=== PATIENT | male | born 1975 | race Caucasian/White ===

== ENCOUNTER 2016-06-19 19:42 | Emergency (ER) | payer MEDICAID ==
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
== END 2016-06-19 21:05 | disposition home or self-care (01) ==
LOC: ER 19:42
DX: F41.0 Panic disorder [episodic paroxysmal anxiety] (principal); F43.12 Post-traumatic stress disorder, chronic; F43.11 Post-traumatic stress disorder, acute; F17.210 Nicotine dependence, cigarettes, uncomplicated; Z79.899 Other long term (current) drug therapy

== ENCOUNTER 2016-06-27 10:13 | Emergency (ER) | payer MEDICAID ==
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
== END 2016-06-27 11:35 | disposition home or self-care (01) ==
LOC: ER 10:13
DX: F41.9 Anxiety disorder, unspecified (principal); F17.210 Nicotine dependence, cigarettes, uncomplicated; Z79.899 Other long term (current) drug therapy

== ENCOUNTER 2016-07-06 09:09 | Emergency (ER) | payer MEDICAID | END 2016-07-06 09:19 | disposition left against medical advice (07) | LOC: ER 09:09 | DX: Z53.21 Procedure and treatment not carried out due to patient leaving prior to being seen by health care provider (principal) ==

== ENCOUNTER 2016-07-06 14:46 | Emergency (ER) | payer MEDICAID ==
--- NOTE | 2016-07-08 10:16 | NUR ---
Pt triggered as a high ED user. Attempted to contact pt - unable due contact pt due to invalid phone number.
--- NOTE | 2016-07-11 21:52 | ER ---
ADMIT: 07/06/2016 RM/LOC: ER [facility] MR#: [id number] [address] [address] JAYSON BOWSER [address] [place] [address] Emergency Room Report SEX: M AGE: 40 : 1975 DATE: 07/06/2016 ADDENDUM: CHIEF COMPLAINT: Anxiety. HISTORY OF PRESENT ILLNESS: This is a 40-year-old, who has tried multiple SSRIs for anxiety. He is not able to tolerate the medications after about 7 days. He stopped taking the medications. Here in the ER, he actually did not request any medications. I just told him to follow up with Dr. Rabia Calderón tomorrow at GI clinic as scheduled. I did tell him to request to have his thyroid checked to make sure this was an issue. CLINICAL IMPRESSION: Anxiety. ROD Reid / Nahid Krueger MD / jacoby JOB #: [id number] CC: Nahid Krueger MD, Attending Physician UNKNOWN, Family Physician
== END 2016-07-06 16:30 | disposition home or self-care (01) ==
LOC: ER 14:46
DX: F41.9 Anxiety disorder, unspecified (principal)

== ENCOUNTER 2016-07-10 12:32 | Emergency (ER) | payer MEDICAID | END 2016-07-10 12:40 | disposition left against medical advice (07) | LOC: ER 12:32 | DX: Z53.21 Procedure and treatment not carried out due to patient leaving prior to being seen by health care provider (principal) ==

== ENCOUNTER 2016-07-11 18:31 | Emergency (ER) | payer MEDICAID ==
--- NOTE | 2016-07-22 19:38 | ER ---
ADMIT: 07/11/2016 RM/LOC: ER [facility] MR#: [id number] [address] [address] JAYSON BOWSER [address] [place] [address] Emergency Room Report SEX: M AGE: 40 : 1975 DATE: 07/11/2016 CHIEF COMPLAINT: Anxiety and left axillary pain. HISTORY OF PRESENT ILLNESS: This is a pleasant 40-year-old male, who presents today secondary to complaints of left axillary pain and anxiety. The patient states he has a storied history of anxiety and panic attacks, bringing him to the ER several times throughout the recent months. The patient states he gets worked up to the point that he starts thinking about bad things and that he could possibly . He has seen Dr. Calderón, his primary care provider, who started him on some medications initially and secondarily referred him to Dr. Hwang for further management of his psychiatric illnesses including PTSD and generalized anxiety disorder. The patient states he is very frustrated with Dr. Hwang, does not feel like she listens, feels like she is just "pushing pills." States that he has tried several medications and failed stating they make his anxiety worse. He states he feels better now being in the ER and after he took Xanax prior to arrival. Denies any nausea, vomiting, shortness of breath, palpitations, chest pain, dizziness or weakness. COURSE IN THE EMERGENCY ROOM: Patient was seen and examined. He is afebrile and nontoxic. Physical exam was unremarkable. We do have a lengthy conversation about his anxiety and he is concerned that his psychiatrist, Dr. Hwang is not addressing his concerns and is "pushing pills." He relates to me that he gets very anxious. He starts worrying about the things to the point that he feels that he could . It is affecting his lifestyle. He feels like he is not able to take care of his kids or devote time that needs to his family. He states he has considered checking himself into the "[facility]." He is very frustrated with the medications he has been placed on previously not providing him any relief; however, he does feel like the Xanax when he does take it does relieve his symptoms. He states he is using this ADMIT: 07/11/2016 RM/LOC: ER [facility] MR#: [id number] [address] [address] JA[address]ON BOWSER [address] [place] [address] Emergency Room Report SEX: M AGE: 40 : 1975 very sparingly at this point as he noted those have addictive potential. IMPRESSION: Anxiety. DISPOSITION: I discussed with the patient that he should perhaps seek a second opinion and with psychiatrist of his choosing, who might better manage his symptoms and provide alternative strategies for dealing with anxiety. I encouraged him to return home and rest. Continue his home medications as previously prescribed. He should return with any worsening signs or symptoms. Otherwise follow up with his primary care provider as needed. Questions were sought and answered to the best of the patient's satisfaction. He was discharged in stable condition. ROD Starkey / Nahid Krueger MD / julissal JOB #: [id number] CC: Gael Cohen MD, Attending Physician Rabia Calderón, Family Physician
== END 2016-07-11 19:52 | disposition home or self-care (01) ==
LOC: ER 18:31
DX: F41.9 Anxiety disorder, unspecified (principal); F17.210 Nicotine dependence, cigarettes, uncomplicated

== ENCOUNTER 2016-07-15 00:18 | Emergency (ER) | payer MEDICAID ==
--- NOTE | 2016-07-15 05:56 | ER ---
ADMIT: 07/15/2016 RM/LOC: [facility] MR#: [id number] [address] [place], [place] [address] JAYSON BOWSER [address] [place] [address] Emergency Room Report SEX: M AGE: 40 : 1975 DATE: 07/15/2016 TIME: 0018 hours. Please refer to my T-sheet for complete H and P. HISTORY OF PRESENT ILLNESS: Briefly, the patient is a 40-year-old who is going on his third day off the Xanax. He has been seen [address] Calderón, today by [facility], and he came here because he cannot sleep. He feels kind of anxious. He was on Xanax but he was on it heavy only for a month or two and a small dose. He did not take it every day, but he is having insomnia now and that is what he wants help with. Nonsuicidal. No other complaints. PHYSICAL EXAMINATION: VITAL SIGNS: Stable. HEENT: Grossly normal. LUNGS: Clear. NEUROLOGIC: Alert and oriented. Nonfocal. EMERGENCY DEPARTMENT COURSE: I had a long discussion with him. He was ready for discharge. ASSESSMENT: 1. Coming off Xanax. 2. Insomnia. PLAN: Use Benadryl. I wrote him a script for Ambien just 10 of them. Use at bedtime p.r.n. Follow up with Dr. Calderón. Israel Ruiz MD/ julissal JOB #: [id number] CC: Israel Ruiz MD, Attending Physician Rabia Calderón, Family Physician
== END 2016-07-15 00:55 | disposition home or self-care (01) ==
LOC: ER 00:18
DX: G47.00 Insomnia, unspecified (principal); F41.9 Anxiety disorder, unspecified; F17.210 Nicotine dependence, cigarettes, uncomplicated; Z79.899 Other long term (current) drug therapy

== ENCOUNTER 2016-07-15 16:43 | Emergency (ER) | payer MEDICAID ==
--- NOTE | 2016-07-27 16:04 | ER ---
ADMIT: 07/15/2016 RM/LOC: ER [facility] MR#: [id number] [address] [address] [address]ON BOWSER [address] [place] [address] Emergency Room Report SEX: M AGE: 40 : 1975 DATE: 07/15/2016 ADDENDUM: A 40-year-old, white male, trying to get off benzodiazepine. He has seen his doctor, they put him on Depakote to see if he can get through this. He has continued doing his normal Depakote, and follow up with his doctor. We had nothing more that we could offer him at this time. Sky Hester MD/ jacoby JOB #: [id number] CC: Sky Hester MD, Attending Physician Mikaela Hwang MD, Family Physician
== END 2016-07-15 18:00 | disposition home or self-care (01) ==
LOC: ER 16:43
DX: F41.1 Generalized anxiety disorder (principal); F19.939 Other psychoactive substance use, unspecified with withdrawal, unspecified; F17.210 Nicotine dependence, cigarettes, uncomplicated

== ENCOUNTER 2016-07-23 12:02 | Emergency (ER) | payer MEDICAID ==
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
== END 2016-07-23 14:00 | disposition home or self-care (01) ==
LOC: ER 12:02
DX: F41.8 Other specified anxiety disorders (principal); Z79.899 Other long term (current) drug therapy

== ENCOUNTER 2016-07-26 20:38 | Emergency (ER) | payer MEDICAID ==
--- NOTE | 2016-07-27 09:33 | NUR ---
Received SAD person referrals on patient. Attempted to contact pt. Pt does not have a valid phone number. SWS contact pt mother. Mother states she will call SWS back with a valid phone number to reach Franco at. Mother states Franco went to [facility] this morning for an evaluation and is currently there.
--- NOTE | 2016-07-27 10:06 | NUR ---
Received call back from mom. Mom states pt's phone number is [phone] and if it does not ring then he is out of minutes and needs to purchase more.
--- NOTE | 2016-08-07 08:35 | ER ---
ADMIT: 07/26/2016 RM/LOC: ER [facility] MR#: [id number] [address] [address] JAYSON BOWSER [address] [place] [address] Emergency Room Report SEX: M AGE: 40 : 1975 DATE: 07/26/2016 A 40-year-old comes to the emergency department with complaints of "I'm withdrawing from my Xanax, I'm anxious." See T-sheet for remainder of history and physical. The patient was given 50 of diphenhydramine IM with resolution of his symptoms, subsequently discharged. DIAGNOSIS: Anxiety. PLAN: Instructed to follow up at [facility] tomorrow. Jonas Novoa MD/ jacoby JOB #: [id number] CC: Severino Grossman MD, Attending Physician Monique Parkinson MD, Family Physician
== END 2016-07-26 21:25 | disposition home or self-care (01) ==
LOC: ER 20:38
DX: F41.9 Anxiety disorder, unspecified (principal); F17.210 Nicotine dependence, cigarettes, uncomplicated; Z79.899 Other long term (current) drug therapy

== ENCOUNTER 2016-07-29 16:30 | Emergency (ER) | payer MEDICAID ==
--- NOTE | 2016-07-30 16:19 | ER ---
ADMIT: 07/29/2016 RM/LOC: [facility] MR#: [id number] [address] [address] JAYSON BOWSER [address] [place] [address] Emergency Room Report SEX: M AGE: 40 : 1975 DATE: 07/29/2016 ADDENDUM: Please see my T-sheet for complete review of systems, past medical history, and physical exam. CHIEF COMPLAINT: Tingling, cannot sleep. HISTORY OF PRESENT ILLNESS: This is a 40-year-old, white male, who presents with complaints of insomnia and tingling throughout his body. The patient states he was started three days ago on prednisone and amoxicillin for a sinus infection. Since that time, he has had increasing difficulty sleeping and feels on edge. He does have a significant history of generalized anxiety, currently treated with Depakote. Also has diagnosed PTSD and what he describes as "mood issues." He does see Dr. Parkinson, who started him on Depakote and has tried to get him off the Xanax. His states his last Xanax was 2-1/2 weeks ago, but he still feels like he is having withdrawal-type symptoms. He is to be seen by a new psychiatrist next week. COURSE IN THE EMERGENCY ROOM: The patient was seen and examined. He is anxious. No acute distress. Pupils are equal and reactive. Pharynx is normal. Neck is soft and supple. No respiratory distress. No wheezes, rhonchi, or rales. Heart is slightly tachycardiac. He is anxious. His speech is pressured. He was given 50 of Benadryl IM, which he states did relieve some of his anxiety and jitters. IMPRESSION: 1. Generalized anxiety. 2. Bacterial sinusitis. DISPOSITION: The patient is to continue his home medications except prednisone. He should complete the entire course of antibiotics prescribed by his physician. Certainly return for worsening signs or symptoms or follow up with Dr. Parkinson if needed. He should keep appointment with psychiatrist for next week. The patient was discharged in stable condition. ROD Starkey / Israel Ruiz MD / jacoby JOB #: [id number] CC: Israel Ruiz MD, Attending Physician Monique Parkinson MD, Family Physician
== END 2016-07-29 17:37 | disposition home or self-care (01) ==
LOC: ER 16:30
DX: J32.9 Chronic sinusitis, unspecified (principal); B96.89 Other specified bacterial agents as the cause of diseases classified elsewhere; F41.1 Generalized anxiety disorder; F17.210 Nicotine dependence, cigarettes, uncomplicated

== ENCOUNTER 2016-08-03 12:39 | Emergency (ER) | payer MEDICAID ==
--- NOTE | 2016-08-20 15:00 | ER ---
ADMIT: 08/03/2016 RM/LOC: ER [facility] MR#: [id number] [id number] [place], [place] [address] JAYSON BOWSER [address] [place] [address] Emergency Room Report SEX: M AGE: 40 : 1975 DATE: 08/03/2016 CHIEF COMPLAINT: Pain with urination. HISTORY OF PRESENT ILLNESS: A 40-year-old white male, who presents with 3 days duration of pain with urination. States he was seen yesterday at [facility] and was not provided any antibiotics. States he does have a new sexual partner 3 weeks ago. Denies using condoms. Rates the pain as a 1/10. Does have some associated left flank pain. States he is lightheaded, had loss of appetite. Denies any urethral discharge or testicular pain. No fevers, chills, nausea, vomiting, or diarrhea. PAST MEDICAL HISTORY: Anxiety and PTSD. ALLERGIES: NO KNOWN DRUG ALLERGIES. MEDICATIONS: He is currently on amoxicillin for a sinus infection. COURSE IN THE EMERGENCY ROOM: The patient was seen and examined. He is afebrile and nontoxic. He is certainly anxious, however, improved from what I have typically seen him. Normal eye, no discharge or exudates. Pharynx is nonerythematous. Neck is soft and supple. Abdomen is soft and nontender. Normal bowel sounds. No testicular tenderness or swelling. Skin is warm and dry. No rash. Extremities are nontender. No pedal edema. Did get a UA on him, significant for 3+ leukocyte esterase, 71 wbc's per high-power field and rare bacteria. Culture was set up on this and is pending. I did treat him empirically for sexually transmitted infections with 250 mg of Rocephin IM as well as 1 g of azithromycin p.o. IMPRESSION: Urethritis. DISPOSITION: Patient is to increase fluids as tolerated. Continue all his home medications. Tylenol or Motrin as needed for pain. Did encourage him to practice safe sex. Use condoms. He should encourage his partner to seek treatment. While I was in the room with him, he was on the phone with [facility] Clinic who was giving him results for his UA completed yesterday. They were going to start him on a course of antibiotics. He should complete this antibiotic as prescribed. Follow up with his primary if not improving. Questions sought and answered to best of my ability and the patient's satisfaction. Discharged in stable condition. ROD Starkey / Sky Hester MD / jacoby JOB #: [id number] CC: Sky Hester MD, Attending Physician
== END 2016-08-03 14:38 | disposition home or self-care (01) ==
LOC: ER 12:39
DX: N34.2 Other urethritis (principal); F41.9 Anxiety disorder, unspecified; F17.210 Nicotine dependence, cigarettes, uncomplicated; Z79.899 Other long term (current) drug therapy

== ENCOUNTER 2016-08-03 19:33 | Emergency (ER) | payer MEDICAID | END 2016-08-03 20:12 | disposition left against medical advice (07) | LOC: ER 19:33 | DX: Z53.21 Procedure and treatment not carried out due to patient leaving prior to being seen by health care provider (principal) ==

== ENCOUNTER 2016-08-03 22:55 | Emergency (ER) | payer MEDICAID | END 2016-08-03 23:30 | disposition left against medical advice (07) | LOC: ER 22:55 | DX: Z53.21 Procedure and treatment not carried out due to patient leaving prior to being seen by health care provider (principal) ==

== ENCOUNTER 2016-08-05 15:44 | Emergency (ER) | payer MEDICAID ==
--- NOTE | 2016-08-13 09:05 | ER ---
ADMIT: 08/05/2016 RM/LOC: ER [facility] MR#: [id number] [address] [address] [place] [address] [place] [address] Emergency Room Report SEX: M AGE: 40 : 1975 DATE: 08/05/2016 BRIEF ADDENDUM: Please see my T-sheet for complete review of systems, past medical history, and physical exam. CHIEF COMPLAINT: Difficulty breathing. HISTORY OF PRESENT ILLNESS: This is a pleasant 40-year-old white male, who presents with a day duration of difficulty breathing and epigastric pain. The patient states he has been having some heartburn like symptoms. Did take two times prior to arrival. States his pain is now resolved. Reiterates to me today that he believes lot of symptoms are secondary to Xanax withdrawal. States he was on Xanax for a course of 2 months 0.5 mg up to two to three times a day. He stopped this medication cold turkey about a month ago. States he has been reading on the Internet that a lot of symptoms can be explained by withdrawal of this medicine. Admits to sweating. No problems with vision, chest pain, shortness of breath, cough, abdominal pain, nausea, headache, dizziness, weakness. PAST MEDICAL HISTORY: Anxiety and PTSD. COURSE IN THE EMERGENCY ROOM: The patient was seen and examined. He is afebrile and nontoxic. He is 97% on room air. Chest is nontender. No respiratory distress. No wheezes, rhonchi, or rales. Breath sounds are normal bilaterally. Neck is soft and supple. Heart is tachycardic. No murmurs, gallops, or rubs. Abdomen is soft and nontender. Skin is warm and dry. He is anxious. He has pressured speech. I had a long discussion with Franco today stating that I believe a lot of his symptoms are driven by his underlying psychiatric comorbidities with his anxiety and PTSD. Given that he was on low doses for short amount of time and that it has been a month since he stopped his medicine, I do not think that his symptoms are secondary to withdrawal at this point. Did encourage him to continue to follow up with his primary care and psychiatrist as much of his symptoms are driven by his anxiety and resolved by the time he is speaking ADMIT: 08/05/2016 RM/LOC: ER [facility] MR#: [id number] [address] [address] FRAN[address] BOWSER [address] [place] [address] Emergency Room Report SEX: M AGE: 40 : 1975 with me in the ER. IMPRESSION: 1. Shortness of breath, resolved. 2. Generalized anxiety. 3. Posttraumatic stress disorder. 4. Epigastric pain concerning for reflux disease. DISPOSITION: The patient was discharged to follow up with his primary care provider and psychiatrist as needed. He can use Tums as needed for heartburn. Did caution him not to use more than 8 g per day. Discharged from the department in stable condition. ROD Starkey / Israel Ruiz MD / julissal JOB #: [id number] CC: Israel Ruiz MD, Attending Physician UNKNOWN, Family Physician
== END 2016-08-05 16:35 | disposition home or self-care (01) ==
LOC: ER 15:44
DX: F41.1 Generalized anxiety disorder (principal); F43.10 Post-traumatic stress disorder, unspecified; R10.13 Epigastric pain

== ENCOUNTER 2016-08-06 20:32 | Emergency (ER) | payer MEDICAID ==
--- NOTE | 2016-09-08 07:24 | ER ---
ADMIT: 08/06/2016 RM/LOC: ER [facility] MR#: [id number] [address] [address] [address]OWSER [address] [place] [address] Emergency Room Report SEX: M AGE: 40 : 1975 DATE: 08/06/2016 ADDENDUM: PHYSICAL EXAMINATION: GENERAL: The patient is alert, in no distress. HEENT: Head is atraumatic. Airway is patent. HEART: Regular rate and rhythm. LUNGS: Clear to auscultation bilaterally. ABDOMEN: Soft and nontender. EXTREMITIES: Sensation; motor intact in all 4 extremities. He has good bilateral radial pulses. SKIN: No skin lesions or rashes are noted. See the T-sheet for remainder of the patient's visit. Nahid Krueger MD/ jacoby JOB #: [id number] CC: Nahid Krueger MD, Attending Physician Rabia Calderón, Family Physician
== END 2016-08-06 22:20 | disposition home or self-care (01) ==
LOC: ER 20:32
DX: F41.9 Anxiety disorder, unspecified (principal); G47.00 Insomnia, unspecified; F17.210 Nicotine dependence, cigarettes, uncomplicated; F43.12 Post-traumatic stress disorder, chronic; Z79.2 Long term (current) use of antibiotics

== ENCOUNTER 2016-08-08 10:08 | Emergency (ER) | payer MEDICAID ==
--- NOTE | 2016-08-20 15:00 | ER ---
ADMIT: 08/08/2016 RM/LOC: [facility] MR#: [id number] [address] [address] JAYSON BOWSER [address] [place] [address] Emergency Room Report SEX: M AGE: 40 : 1975 DATE: 08/08/2016 ADDENDUM: This 40-year-old white male coming in complaining of flank pain, last several days. Might be little better today. CT shows a small renal stone, but nothing in the ureter. I said he probably could have passed a small stone since his pain is on the left side, described as such, but he really did not have pain now. He is also treated for a UTI. He had never grew anything out. I said just to finish his Cipro for at least a total of 5 days in case we had caught a subtle one, then he should follow up as needed. CONDITION ON DISCHARGE: Good. Sky Hester MD/ jacoby JOB #: [id number] CC: Sky Hester MD, Attending Physician UNKNOWN, Family Physician
== END 2016-08-08 12:00 | disposition home or self-care (01) ==
LOC: ER 10:08
DX: N20.0 Calculus of kidney (principal); F41.9 Anxiety disorder, unspecified; Z79.899 Other long term (current) drug therapy

== ENCOUNTER 2016-08-08 17:56 | Emergency (ER) | payer MEDICAID ==
--- NOTE | 2016-09-12 15:32 | ER ---
ADMIT: 08/08/2016 RM/LOC: ER [facility] MR#: [id number] [address] [place], [place] [address] JAYS[address] BOWSER [address] [place] [address] Emergency Room Report SEX: M AGE: 40 : 1975 DATE: 08/08/2016 ADDENDUM: CHIEF COMPLAINT: Hurts all over. HISTORY OF PRESENT ILLNESS: This is a 40-year-old male, who has had a few visits to our ER and also [facility]. Per patient, he also has seen his primary care provider, Rabia Calderón. It sounds as though he has had a lot of anxiety, they tried on multiple antidepressants and also placed him on Xanax for 2 months, then he came off the Xanax about a month ago. He said since then, he has just really not felt well. He always hurts all over. Today, he presented earlier with left flank pain. Dr. Hester did a renal colic CT showed a renal stone, but no stones in the ureters. I told him I think this pain is just from being so tense all the time and his anxiety. I told him to try to do actually exercise to help him with his stress level, told to continue his Cipro and follow up with Rabia Calderón if symptoms continue. CLINICAL IMPRESSION: Anxiety. ROD Reid / Jonas Novoa MD / julissal JOB #: [id number] CC: Sky Hester MD, Attending Physician
== END 2016-08-08 19:35 | disposition home or self-care (01) ==
LOC: ER 17:56
DX: F41.9 Anxiety disorder, unspecified (principal); R10.11 Right upper quadrant pain; F17.210 Nicotine dependence, cigarettes, uncomplicated; Z79.899 Other long term (current) drug therapy

== ENCOUNTER 2016-08-11 08:28 | Emergency (ER) | payer MEDICAID ==
--- NOTE | 2016-08-12 07:25 | ER ---
ADMIT: 08/11/2016 RM/LOC: ER [facility] MR#: [id number] [address] [place], [place] [address] JAYSON BOWSER [address] [place] [address] Emergency Room Report SEX: M AGE: 40 : 1975 DATE: 08/11/2016 BRIEF ADDENDUM: Please see my T-sheet for complete review of systems, past medical history, and physical exam. CHIEF COMPLAINT: Shortness of breath. HISTORY OF PRESENT ILLNESS: A 40-year-old white male, who presents to the ER with 14 days duration of shortness of breath. States he was in to see his psychiatry provider yesterday, started on hydroxyzine which he has been taking. Since then, he has had some increased fatigue and dry mouth. He was also given a script for Lexapro which he has not filled or started at this point. States the shortness of breath is constant, associated with some chest pain, cough, racing heart. He continues to think his symptoms are secondary to a course of Xanax prescribed to him more than 40 days ago. States he has an albuterol inhaler at home which he uses and does not improve his symptoms. PAST MEDICAL HISTORY: Anxiety and PTSD. COURSE IN EMERGENCY ROOM: Patient seen and examined. GENERAL: He is afebrile and nontoxic. He is 98% on room air. He is in no acute distress. He is alert. HEENT: Head normocephalic, atraumatic. Pharynx not erythematous. NECK: Soft and supple. LUNGS: No respiratory distress. Breath sounds normal bilaterally. No wheezes, rhonchi, or rales. HEART: Regular. No murmurs, gallops, or rubs. ABDOMEN: Soft and nontender. SKIN: Warm and dry. EXTREMITIES: Nontender. No pedal edema. NEUROLOGICAL: He is alert and oriented. IMPRESSION: 1. Shortness of breath. 2. Anxiety. 3. Tobacco abuse. ADMIT: 08/11/2016 RM/LOC: [facility] MR#: [id number] [address] [address] JAYSON BOWSER [address] [place] [address] Emergency Room Report SEX: M AGE: 40 : 1975 DISPOSITION: I had a lengthy discussion with the patient today about the medicines he is on as hydroxyzine can have some of the symptoms of dry mouth and fatigue that he has been experiencing. I did encourage him to start the Lexapro as prescribed by Dr. Hwang. He states he is afraid of starting medicine that he has had poor results of medications like this in the past. States if he is discharged today, he eventually is going to be right back in here. Told him to continue to use the inhaler as needed for shortness of breath symptoms. Otherwise follow up with Dr. Calderón as needed. Questions sought and answered to best of my ability and the patient's satisfaction. Discharged in stable condition. ROD Starkey / Nahid Krueger MD / jacoby JOB #: [id number] CC: Sky Hester MD, Attending Physician Rabia Calderón, Family Physician Mikaela Hwang MD
== END 2016-08-11 09:42 | disposition home or self-care (01) ==
LOC: ER 08:28
DX: F41.9 Anxiety disorder, unspecified (principal); F17.210 Nicotine dependence, cigarettes, uncomplicated

== ENCOUNTER 2016-08-18 10:58 | Emergency (ER) | payer MEDICAID ==
--- NOTE | 2016-08-28 18:03 | ER ---
ADMIT: 08/18/2016 RM/LOC: [facility] MR#: [id number] [address] [address] [address]YSON BOWSER [address] [place] [address] Emergency Room Report SEX: M AGE: 40 : 1975 DATE: 08/18/2016 ADDENDUM: CHIEF COMPLAINT: Tingling to his 5th finger. HISTORY OF PRESENT ILLNESS: This is a 40-year-old, who did not do anything specific. He just started having tingling in his 5th finger. It is intermittent and comes and goes. He rates this pain at 1/2. When I press on the medial aspect of his elbow, it does cause a tingling sensation down his arm and into that 5th finger. I told him it probably is due to his ulnar nerve. At this time, he can use ice, Motrin or Tylenol to help with inflammation. Follow up with his primary care physician if symptoms continue. He also complains of dysuria issues that have been chronic. He has seen his provider multiple times concerning this, has already been on antibiotics. I did suggest to him following up with Urology if symptoms continue. CLINICAL IMPRESSION: Paresthesia to the left 5th finger, possibly secondary to ulnar nerve inflammation. ROD Reid / Israel Ruiz MD / jacoby JOB #: [id number] CC: Israel Ruiz MD, Attending Physician
== END 2016-08-18 12:24 | disposition home or self-care (01) ==
LOC: ER 10:58
DX: R20.9 Unspecified disturbances of skin sensation (principal); F41.9 Anxiety disorder, unspecified

== ENCOUNTER 2016-08-18 16:29 | Emergency (ER) | payer MEDICAID ==
--- NOTE | 2016-08-24 23:42 | ER ---
ADMIT: 08/18/2016 RM/LOC: ER [facility] MR#: [id number] [address] [address] [address] BOWSER [address] [place] [address] Emergency Room Report SEX: M AGE: 40 : 1975 DATE: 08/18/2016 CHIEF COMPLAINT: Penile discharge, dysuria. HISTORY OF PRESENT ILLNESS: A 40-year-old white male, who presents to the ER complaining of penile discharge and pain for the past day. Complains of burning and pain with urination, clear white discharge from the penis and urethral pain. He is sexually active. He has previously been treated for sexually transmitted infections. He states since that time, he has only been with one partner and believes she was adequately treated. He states his anxiety is somewhat improved. He is continuing to take his Lexapro. He states he has cut down on his smoking. COURSE IN THE EMERGENCY ROOM: The patient was seen and examined. Afebrile, nontoxic. No acute distress. No abdominal tenderness. He has some thin yellow white urethral discharge. No testicular pain, tenderness. Respiratory; no wheezes, rhonchi, or rales. Heart is regular rate and rhythm. Extremities nontender. Skin is warm and dry. No rash. He is alert and oriented. He does seem somewhat depressed today, changed from his typical anxious affect. I did swab his urethra today. Testing for GC chlamydia pending at this time. We will go ahead and treat him at this time with doxycycline 100 mg p.o. b.i.d. for 7 days. He is to complete the course of this antibiotic and follow up with Dr. Calderón with concern. I did have him keep his appointment with Urology if he fails to improve. Questions sought and answered to the best of my ability and to the patient's satisfaction. Discharged in stable condition. ROD Starkey / Israel Ruiz MD / jacoby JOB #: [id number] CC: Israel Ruiz MD, Attending Physician
== END 2016-08-18 18:40 | disposition home or self-care (01) ==
LOC: ER 16:29
DX: N48.89 Other specified disorders of penis (principal); R36.9 Urethral discharge, unspecified; F41.9 Anxiety disorder, unspecified; Z88.8 Allergy status to other drugs, medicaments and biological substances

== ENCOUNTER 2016-08-18 19:48 | Emergency (ER) | payer MEDICAID ==
--- NOTE | 2016-08-22 09:08 | ER ---
ADMIT: 08/18/2016 RM/LOC: ER [facility] MR#: [id number] [id number] [place], [place] [address] JAYSON BOWSER [address] [place] [address] Emergency Room Report SEX: M AGE: 40 : 1975 DATE: 08/18/2016 BRIEF ADDENDUM: Please see my T sheet for complete review of systems, past medical history, and physical exam. CHIEF COMPLAINT: "Feels like I am going to past out." HISTORY OF PRESENT ILLNESS: This is a 40-year-old male, who presents to the ER feeling like he is going to pass out. Actually, just saw this patient discharge and diagnosed with penile discharge treated for GC chlamydia with doxycycline. States he took his first dose. States throughout the day, he has felt kind of numb and tingly, just not right. Continues to state that he feels like the Xanax poisoned him and is causing a lot of his symptoms. Denies any numbness or tingling in the extremities. Admits to generalized malaise. COURSE IN THE ER: GENERAL: The patient seen and examined. He is afebrile and nontoxic. VITAL SIGNS: Blood pressure 120/66, heart rate 72, respirations 20, temperature 96.9, and 97% on room air. He is in no acute distress. He is alert. HEENT: Head is normocephalic and atraumatic. Eyes are equal and reactive. NECK: Soft and supple. CHEST: Nontender. No respiratory distress. HEART: Regular rate and rhythm. No murmurs, gallops, or rubs. SKIN: Warm and dry. EXTREMITIES: Nontender. No pedal edema. NEURO: He is alert and oriented x4. He is somewhat depressed. IMPRESSION: 1. Malaise. 2. Penile discharge. DISPOSITION: The patient was discharged home to increase fluids as tolerated. Return to home and rest. Follow up with primary care as needed. Questions were sought and answered to the best of my ability and to the patient's satisfaction. Discharged in stable condition. ROD Starkey / Nahid Krueger MD / jacoby JOB #: [id number] CC: Nahid Krueger MD, Attending Physician Rabia Calderón, Family Physician
== END 2016-08-18 21:14 | disposition home or self-care (01) ==
LOC: ER 19:48
DX: R36.9 Urethral discharge, unspecified (principal); R53.81 Other malaise; F41.9 Anxiety disorder, unspecified; F17.210 Nicotine dependence, cigarettes, uncomplicated

== ENCOUNTER 2016-08-21 05:51 | Emergency (ER) | payer MEDICAID ==
--- NOTE | 2016-08-24 13:25 | NUR ---
Received referrals. Called and spoke with patient. Patient states he has a counseling appointment with Laura rivera and he sees her weekly. Patient has a PCP, Rabia Calderón. Patient states he has been having increased anxiety attacks over the past two months and he is unsure why. Patient states he sees a psychologist and takes his meds as prescribed. Patient states he has a case planner with Medicaid. [facility] called [employer] [facility] [place] and confirmed this. His case planner is Sivakumar Howe and phone number is [phone]. Patient states he meets with Sivakumar on .
--- NOTE | 2016-08-28 17:48 | ER ---
ADMIT: 08/21/2016 RM/LOC: ER [facility] MR#: [id number] [address] [facility] [address] [place], [place] [address] [address]ON BOWSER [address] [place] [address] Emergency Room Report SEX: M AGE: 40 : 1975 DATE: 08/21/2016 This is a 40-year-old, white male, seen here multiple times for multiple complaints. He has an underlying anxiety disorder of some degree. Our exam really is nothing acute except more anxious than anything. I spoke with Dr. Quintanilla, they are going to try and see if they can get a little more help with him. Also, put Social Service contact in and see if we can help him through Medicaid spring encaser as well. He has nothing acute. He is on some medicine for anxiety, Lexapro. Otherwise, there is not anything else that is different or acute at this time. Dr. Quintanilla will pass this along to Rabia Calderón, who is his primary NPR at the clinic. Sky Hester MD/ jacoby JOB #: [id number] CC: Nahid Krueger MD, Attending Physician Rabia Calderón, Family Physician Rabia Calderón APRN, [facility] [address] [id number]
== END 2016-08-21 07:01 | disposition home or self-care (01) ==
LOC: ER 05:51
DX: F41.9 Anxiety disorder, unspecified (principal); F17.210 Nicotine dependence, cigarettes, uncomplicated; Z88.8 Allergy status to other drugs, medicaments and biological substances; Z79.899 Other long term (current) drug therapy

== ENCOUNTER 2016-08-31 17:43 | Emergency (ER) | payer MEDICAID ==
--- NOTE | 2016-09-05 17:50 | ER ---
ADMIT: 08/31/2016 RM/LOC: ER [facility] MR#: [id number] [address] [address] [address]ER [address] [place] [address] Emergency Room Report SEX: M AGE: 40 : 1975 DATE: 08/31/2016 PRIMARY CARE: Rabia Calderón. CHIEF COMPLAINT: Chest pain. HISTORY OF PRESENT ILLNESS: A 40-year-old male, who presents with a day's duration of constant chest pain. States he was seen by his primary earlier and today diagnosed with anxiety, encouraged to use omeprazole for gastroesophageal reflux disease. States this pain has been constant all day. Has not noticed it worsening with activity exertion, describes it as retrosternal burning pain. No radiation associated with some shortness of breath. No nausea, vomiting, palpitations. Tried Tums, did not get relief, did take an omeprazole about an hour prior to arrival. COURSE IN THE EMERGENCY ROOM: VITAL SIGNS: The patient was seen and examined. He is afebrile and nontoxic. No acute distress. HEENT: Normocephalic, atraumatic. CHEST: Nontender. HEART: Regular rate and rhythm. Breath sounds are equal bilaterally. ABDOMEN: Soft and nontender. SKIN: Warm and dry. The EKG shows ventricular rate of 84, sinus rhythm, no ST-T or Q wave abnormalities. IMPRESSION: 1. Gastroesophageal reflux disease. 2. Atypical chest pain. DISPOSITION: The patient was discharged to continue the omeprazole over-the- counter as directed by his physician and follow up with his primary as needed. To return home and rest. Continue all other home medications. Questions sought and answered to the patient's satisfaction. Discharged in stable condition. ROD Starkey / Sky Hester MD / jacoby JOB #: [id number] CC: Sky Hester MD, Attending Physician UNKNOWN, Family Physician
== END 2016-08-31 18:25 | disposition home or self-care (01) ==
LOC: ER 17:43
DX: K21.9 Gastro-esophageal reflux disease without esophagitis (principal); R07.89 Other chest pain; F41.9 Anxiety disorder, unspecified; F17.210 Nicotine dependence, cigarettes, uncomplicated; Z88.1 Allergy status to other antibiotic agents; Z98.890 Other specified postprocedural states

== ENCOUNTER 2016-09-04 07:18 | Emergency (ER) | payer MEDICAID ==
--- NOTE | 2016-09-08 07:25 | ER ---
ADMIT: 09/04/2016 RM/LOC: ER [facility] MR#: [id number] [address] [place], [place] [address] [address]ON BOWSER [address] [place] [address] Emergency Room Report SEX: M AGE: 40 : 1975 DATE: 09/04/2016 See T-sheet for complete H and P. ADDENDUM: A 40-year-old male, comes in with complaints of chest pain. He states this has been going on for a long time. He describes the character as a wide range of sensations ranging from tingling to sharp pain to fluttering to burning pain. He describes it as being all over his chest; sometimes in the middle; sometimes the left, the right, the front, the back. It is not associated with any sort of activity or exertion. He also states that at times he feels somewhat short of breath. The patient is noted that he smokes a pack and a half to 2 packs a day. He has been seen by Cardiology and has had a stress test and an echo done in the past 2 weeks, and those were both unremarkable. I did review the patient's previous EKG from just 4 days ago, and it was also unremarkable. The patient has a long history of anxiety, and I truly believe his symptoms at this time are based of his anxiety. His physical exam was unremarkable, see T-sheet for that, and I believe the patient is safe to be discharged home to follow up with his die maintenance technician later this week as he is already scheduled. He is encouraged to stay active to help with his anxiety as he seems to be dwelling on issues that he needs reassurance to come in to be seen in the ER. DIAGNOSES: 1. Atypical chest pain. 2. Anxiety. Nahid Krueger MD/ jacoby JOB #: [id number] CC: Nahid Krueger MD, Attending Physician UNKNOWN, Family Physician
== END 2016-09-04 08:00 | disposition home or self-care (01) ==
LOC: ER 07:18
DX: R07.89 Other chest pain (principal); F41.9 Anxiety disorder, unspecified; F17.210 Nicotine dependence, cigarettes, uncomplicated; Z98.890 Other specified postprocedural states; Z79.899 Other long term (current) drug therapy; Z88.1 Allergy status to other antibiotic agents

== ENCOUNTER 2016-09-05 18:36 | Emergency (ER) | payer MEDICAID ==
--- NOTE | 2016-09-08 10:42 | NUR ---
Received referral from ED. Called and spoke with pt. Pt states he has been doing everything that has been asked of him as far as going to his follow up appts. Pt states he can no longer go back to [facility] because they are telling Medicaid that he is not following doctors orders and because he missed an appt. Pt states he was last seen at the [facility] Clinic on Tuesday. Pt states he was fine before he started taking the medications that were precribed to him. Pt states he now goes to see Soledad at [facility] for his counseling appts. Pt states he went to the ED because he felt like he was going to . Pt states he plans to have his records transfered to [facility] and will start seeing one of [facility] physicians. Pt states he also has an appt with a urologist at the end of the month.
--- NOTE | 2016-09-08 10:47 | NUR ---
MARIE left a voice mail message for the classification case manager with [facility] [employer].
--- NOTE | 2016-09-09 18:55 | ER ---
ADMIT: 09/05/2016 RM/LOC: ER [facility] MR#: [id number] [address] [address] [address] BOWSER [address] [place] [address] Emergency Room Report SEX: M AGE: 40 : 1975 DATE: 09/05/2016 ADDENDUM: This patient comes to the ER because he is having chest pain. He states he has had chest pain for the last 2 to 3 months. He has gone to several doctors. They have done a cardiac workup on him several times and it always comes back normal. He is to see a commercial illustrator tomorrow. They also told him that he probably had acid reflux, and he is concerned that if he has acid reflux, what is the test that they have done that showed him that is what he has. He states he was very healthy until they had him take Xanax 3 months ago and since then he thinks this is causing all of his issues with his health. On physical exam, he is alert and talkative. I did review his chart with him. He has 26 visits to the emergency room in the 4 months. After speaking with the patient, we talked about what we could really do for him in the emergency room and that he needs to find a primary physician. He is concerned that his primary physician is not taking him seriously and that is why he keeps coming to the ER because he is unsure what to do. I did set up for a social work consult to help him find a primary care physician and also for him to follow up with Dr. Gunderson, who is on-call for surgery for a possible EGD to determine the issues that he has been having with his stomach. He is also to keep his appointment with the commercial illustrator tomorrow. Please see my T-sheet. ROD Szymanski / Sky Hester MD / jacoby JOINER: 09/05/2016 20:45:52 JOB #: [id number] CC: Sky Hester MD, Attending Physician Rabia Calderón, Family Physician
== END 2016-09-05 19:25 | disposition home or self-care (01) ==
LOC: ER 18:36
DX: R07.9 Chest pain, unspecified (principal); F41.9 Anxiety disorder, unspecified; Z79.899 Other long term (current) drug therapy; Z88.1 Allergy status to other antibiotic agents

== ENCOUNTER 2016-09-14 19:14 | Emergency (ER) | payer MEDICAID ==
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
== END 2016-09-14 19:45 | disposition home or self-care (01) ==
LOC: ER 19:14
DX: J45.909 Unspecified asthma, uncomplicated (principal); F17.210 Nicotine dependence, cigarettes, uncomplicated; Z88.1 Allergy status to other antibiotic agents; Z98.890 Other specified postprocedural states; Z79.899 Other long term (current) drug therapy

== ENCOUNTER 2016-09-17 06:10 | Emergency (ER) | payer MEDICAID ==
--- NOTE | 2016-09-17 19:59 | ER ---
ADMIT: 09/17/2016 RM/LOC: ER [facility] MR#: [id number] [address] [address] JAYSON BOWSER [address] [place] [address] Emergency Room Report SEX: M AGE: 40 : 1975 DATE: 09/17/2016 HISTORY OF PRESENT ILLNESS: The patient is a 40-year-old male, came to the ER with chief complaint of some cough and intermittent shortness of breath for the last few weeks. The patient also complains of intermittent sore throat. The patient denies any fever. PHYSICAL EXAMINATION: VITAL SIGNS: In the ER, the patient was afebrile, vitals are stable. HEAD AND NECK: Positive for oropharyngeal erythema. Neck is normal with midline trachea. LUNGS: Clear bilaterally. HEART: Normal heart sounds. ABDOMEN: Soft. The rest of physical exam is noncontributory. X-RAY DATA: Chest x-ray was negative for any infiltration or acute changes. ASSESSMENT AND PLAN: The patient was diagnosed with upper respiratory tract infection, was discharged home with return precautions. Follow up with the primary doctor as needed. Gael Cohen MD/ jacoby JOB #: [id number] CC: Gael Cohen MD, Attending Physician Macy Coronado MD, Family Physician
== END 2016-09-17 07:20 | disposition home or self-care (01) ==
LOC: ER 06:10
DX: J06.9 Acute upper respiratory infection, unspecified (principal); F41.9 Anxiety disorder, unspecified; Z87.891 Personal history of nicotine dependence; Z79.899 Other long term (current) drug therapy; Z88.1 Allergy status to other antibiotic agents

== ENCOUNTER 2016-09-17 09:34 | Emergency (ER) | payer MEDICAID ==
--- NOTE | 2016-09-24 18:56 | ER ---
ADMIT: 09/17/2016 RM/LOC: ER [facility] MR#: [id number] [address] [place], [place] [address] JAYSON BOWSER [address] [place] [address] Emergency Room Report SEX: M AGE: 40 : 1975 DATE: 09/17/2016 ADDENDUM: CHIEF COMPLAINT: Anxiety. HISTORY OF PRESENT ILLNESS: This is a 40-year-old male who felt like he was going to pass out prior to arrival. He said all he was doing was getting in and out of his truck. He has been dealing with multiple multisystem discomfort for the last few months. He claims this all started after he started taking Xanax, just things became quite a bit worse, he only took for couple months and then going through detox, he has just never felt the same. Again, today, he was trying to get out of his truck, he just felt very anxious, felt like he was going to pass out, was having chest pain, so came into the ER. PAST MEDICAL HISTORY: 1. GERD. 2. Anxiety. 3. PTSD. 4. Right eye surgery. 5. History of kidney stones. MEDICATIONS: 1. Tums. 2. Tylenol. ALLERGIES: TO CIPROFLOXACIN. SOCIAL HISTORY: Denies any drug or alcohol use, but smokes 1/2 pack of tobacco daily. REVIEW OF SYSTEMS: CONSTITUTIONAL: Denies any fevers, chills, or sweats. CARDIOVASCULAR/RESPIRATORY: Does have some chest pain and some shortness of breath. GASTROINTESTINAL/GENITOURINARY: Does not have any nausea, but does feel abdominal pain intermittently. MUSCULOSKELETAL: He just aches all over. PSYCH: He constantly cannot stop thinking about different medications that he has tried, he is constantly googling as constantly anxious about it. Said he just cannot cope with life, he cannot sleep, he cannot eat, just has no energy. All systems otherwise negative. PHYSICAL EXAMINATION: VITAL SIGNS: Blood pressure is 119/88, pulse is 81, respirations 20, temperature is 96.7 tympanic, oxygen saturation is 100% room air. GENERAL APPEARANCE: The patient is in moderate distress, but alert. Very ADMIT: 09/17/2016 RM/LOC: ER [facility] MR#: [id number] [address] [address] JA[address]ON BOWSER [address] [place] [address] Emergency Room Report SEX: M AGE: 40 : 1975 anxious. HEENT: Pharynx is moist. No tonsillar swelling or exudate. HEART: Regular rate and rhythm. LUNGS: CTA bilateral. ABDOMEN: Soft, nontender. SKIN: Normal color, warm, and dry. No rashes noted. NEURO and PSYCH: He is very anxious. He is a little bit tearful and he cannot stop talking about different medications he has taken and the side affects from them. COURSE IN THE EMERGENCY ROOM: I did CT his head because he has had multiple lab work done, multiple medications tried. He feels like there was something wrong with his head and he has had headaches. I did a CT head, it is negative for any acute findings. I am discharging him home. Told him to continue the BuSpar, try to exercise, tried to eat, try to keep active, try to keep his mind off the anxiety. He refuses to take any benzodiazepine. I did tell him to try to stick with one medication to help him with his anxiety. CLINICAL IMPRESSION: 1. Anxiety. 2. Panic attacks. ROD Reid / Sky Hester MD / jacoby JOB #: [id number] CC: Sky Hester MD, Attending Physician UNKNOWN, Family Physician
== END 2016-09-17 12:00 | disposition home or self-care (01) ==
LOC: ER 09:34
DX: F41.0 Panic disorder [episodic paroxysmal anxiety] (principal); F17.210 Nicotine dependence, cigarettes, uncomplicated; Z79.899 Other long term (current) drug therapy; Z87.442 Personal history of urinary calculi; Z98.890 Other specified postprocedural states; Z88.1 Allergy status to other antibiotic agents